=== PATIENT | male | born 1995 | race Two or more races ===

== ENCOUNTER 2025-04-15 14:09 | Emergency (ER) | payer MEDICAID, SELFPAY ==
[2025-04-15 14:10] VITALS: BMI 21.0
[2025-04-15 14:36] VITALS: BP 136/88; PULSE 117; RESP 18; TEMP 37.2; O2SAT 99
--- NOTE | 2025-04-15 14:40 | XR_ITS ---
Examination: Tibia-Fibula, right , 2 views Technique: Tibia-fibula AP lateral 2 views Date and time of exam: April 15, 2025 1557 hours INDICATIONS: Redness swelling and pain lower leg beginning 4 days ago FINDINGS: No fracture or dislocation. No foreign body No cortical bone destruction IMPRESSION: Negative for foreign body
--- NOTE | 2025-04-15 14:40 | XR_ITS ---
Examination: Knee, right , 3 views Technique: Knee AP, lateral, oblique 3 views Date and time of exam: April 15, 2025 1557 hours INDICATIONS: Redness swelling and pain involving the knee 4 days FINDINGS: No fracture or dislocation. No cortical bone destruction Prepatellar and prepatellar tendon soft tissue prominence Small knee effusion IMPRESSION: Consider ultrasound soft tissue knee follow-up to exclude prepatellar abscess
--- NOTE | 2025-04-15 14:40 | PD.EDRME ---
Rapid Medical Screening Exam RME Arrival date/time: 04/15/25 14:09 29-year-old male presents emergency department today for complaint of right leg infection Chief Complaint: Skin/Abscess/Foreign Body Vital signs: Vital Signs Temperature 99 F 04/15/25 14:36 Pulse Rate 117 H 04/15/25 14:36 Respiratory Rate 18 04/15/25 14:36 Blood Pressure 136/88 H 04/15/25 14:36 Pulse Oximetry (%) 99 04/15/25 14:36 Oxygen Delivery Method Room Air 04/15/25 14:36
[2025-04-15 15:10] LABS: Lactate (Lactic Acid) 1.7 mMol/L (0.4-2.0)
[2025-04-15 15:13] LABS: Basophils # (Auto) 0.1 Thou/mm3 (0.0-0.2); Basophils % (Auto) 1 % (0-2.5); Eosinophils # (Auto) 0.2 Thou/mm3 (0.0-0.5); Eosinophils % (Auto) 3 % (0-10); Hematocrit 33.3 % (41.0-53.0); Hemoglobin 11.7 g/dL (13.5-16.0); Immature Granulocytes % (Auto) 1 % (0-0); Immature Granulocytes Auto 0.04 Thou/mm3 (0.00-0.00); Lymphocytes # (Auto) 1.7 Thou/mm3 (1.0-4.8); Lymphocytes % (Auto) 23 % (10-50); Mean Corpuscular HGB Conc 35.1 g/dl (31.0-37.0); Mean Corpuscular Hemoglobin 29.8 pg (25.0-35.0); Mean Corpuscular Volume 85 fL (80-100); Monocytes # (Auto) 0.7 Thou/mm3 (0.0-0.8); Monocytes % (Auto) 9 % (0-12); Neutrophils # (Auto) 4.8 Thou/mm3 (1.8-7.7); Neutrophils % (Auto) 65 % (37-80); Nucleated Red Blood Cell % 0 /100 WBC (0); Platelet Count 331 Thou/mm3 (140-440); RDW Standard Deviation 37.1 fL (35.1-43.9); Red Blood Count 3.92 Miln/mm3 (4.50-5.90); White Blood Count 7.4 Thou/mm3 (3.8-10.6)
[2025-04-15 15:30] LABS: Alanine Aminotransferase 15 U/L (10-49); Alkaline Phosphatase 88 U/L (46-116); Anion Gap 13 (7-16); Aspartate Amino Transferase 23 U/L (0-34); BUN/Creatinine Ratio 14 Ratio (12-20); Blood Urea Nitrogen 11 mg/dL (9-23); Calcium 8.4 mg/dL (8.3-10.6); Carbon Dioxide 30.2 mMol/L (20.0-31.0); Chloride 103 mMol/L (98-107); Creatinine (Component) 0.8 mg/dL (0.6-1.3); Estimated Creatinine Clearance 101.4 mL/min (>60); Glucose 99 mg/dL (74-106); Osmolality,Calculated 289 (275-295); Potassium 4.1 mMol/L (3.4-5.1); Sodium 146 mMol/L (136-145); eGFR > 60 See Note
[2025-04-15 15:31] LABS: Albumin/Globulin Ratio 1.6 (1.2-2.2); Bilirubin,Total 0.3 mg/dL (0.3-1.2); C-Reactive Protein 4.2 mg/dL (0.0-0.9); Calcium (Corrected) 8.4 mg/dL (8.5-10.1); Globulin 2.5 gm/dL (2.3-3.5); Total Protein 6.5 gm/dL (5.7-8.2)
[2025-04-15 15:35] LABS: Prothrombin Time 10.6 Seconds (9.0-12.2)
[2025-04-15 15:38] LABS: Procalcitonin 0.07 ng/ml (0.0-0.49)
[2025-04-15 15:52] LABS: Sed Rate (ESR) 48 mm/hr (0-15)
[2025-04-15 16:42] LABS: Amphetamine/Methamp Scrn,U Positive (Negative); Barbiturate Screen,Urine Negative (Negative); Benzodiazepines Screen,Urine Negative (Negative); Benzoylecgonine Screen, Ur Positive (Negative); Fentanyl Screen,Urine Negative (Negative); Opiate Screen,Urine Negative (Negative); THC Screen,Urine Negative (Negative)
[2025-04-15 18:09] VITALS: BP 138/101; PULSE 111; RESP 18; TEMP 36.9; O2SAT 99
--- NOTE | 2025-04-15 18:14 | EDNOTE_ITS ---
ED Skin Abcess FB-RME/HPI General Chief complaint: Skin/Abscess/Foreign Body Stated complaint: POSSIBLE INSECT BITE TO KNEE WITH REDNESS Time Seen by Provider: 04/15/25 18:11 Arrival date/time: 04/15/25 14:09 RME / HPI RME / HPI narrative: 04/15/25 14:09 29-year-old male presents emergency department today for complaint of right leg infection Dr. Suárez?s Main ED Evaluation: 29 y/o male presents to ED c/o right lower leg pain, redness, and swelling x 1 week. Symptoms began with a small bump that he attributed to using cheap razors from the [employer] store. Patient has expressed pus from area. Patient denies any fever, chills, N/V or any other associated symptoms. No other concerns or complaints expressed at this time. Related Data Previous Rx's ?Medication ?Instructions ?Recorded diphenhydramine HCl 25 mg capsule 25 mg PO Q6H PRN run ny nose #30 06/01/18 (Benadryl) caps prednisone 20 mg tablet 40 mg (2 x 20 mg) PO QAM #9 tabs 06/01/18 acetaminophen 500 mg tablet 1,000 mg (2 x 500 mg) PO Q 6H PRN 04/15/25 fever or pain #30 tabs doxycycline monohydrate 100 mg 100 mg PO BID Celluliti s 10 days 04/15/25 capsule #20 caps ibuprofen 600 mg tablet 600 mg PO Q6H PRN fever or p ain 04/15/25 #30 tabs Allergies Allergy/AdvReac Type Severity Reaction Status Date / Time No Known Allergies Allergy Verified 04/15/25 14:12 Review of Systems Review of Systems Systems Reviewed: All systems reviewed, normal except as documented ED Exam Narrative Physical exam: GENERAL APPEARANCE: alert and oriented x 4, well-developed, well-nourished, no acute distress VITALS: All vitals were reviewed and the pulse ox is 100% on room air, which is normal according to my interpretation. HEENT: Normocephalic, atraumatic; pupils equal, round, reactive to light; EOMI; mucous membranes pink, moist; oropharynx clear NECK: Supple LUNGS: CTABL; no wheezes, no rales, no rhonchi HEART: Regular rate, regular rhythm; normal S1, S2; no murmurs ABDOMEN: non distended; normal BS; soft, no tenderness, no guarding, no rebound; no masses, no organomegaly, no hernia BACK: no CVA tenderness EXTREMITIES: atraumatic NEUROLOGIC: awake; alert and oriented x4; cranial nerves II-XII grossly intact; no focal sensory or motor deficits PSYCHIATRIC: appropriate mood and affect SKIN: 2 cm circular open wound overlying right tibial tuberosity. Pitting 2+ edema, erythema, hot to touch from the right foot just inferior to the knee. Course Course Course Narrative: 18:37 I expressed a small amount of pus from the wound This patient absolutely refused to be admitted to the hospital. He stated that his mom is graduating from college and that he has to go to the graduation [employer]. He states that he will come back if his leg does not get better. I tried to convince him to stay for admission but he absolutely refused. I went ahead and gave him IV antibiotics, called and antibiotics at the pharmacy and encouraged him to come back as soon as he is ready to be admitted. Quality Measures none Orders Category Date Time Status IV [Insert IV] NOW Care 04/15/25 18:28 Completed XR knee RT 3V Stat Exams 04/15/25 14:40 Completed XR tibia fibula RT 2V Stat Exams 04/15/25 14:40 Completed Blood Culture (Lab) Stat Lab 04/15/25 14:40 Results CBC Stat Lab 04/15/25 14:48 Completed CMP [Comprehensive Metabolic Panel] Stat Lab 04/15/25 14:48 Completed CRP [C-Reactive Protein] Stat Lab 04/15/25 14:48 Completed Drug Screen,Urine Stat Lab 04/15/25 16:20 Completed ESR [Sed Rate (ESR)] Stat Lab 04/15/25 14:48 Completed Lactic Acid [Lactate (Lactic Acid)] Stat Lab 04/15/25 14:48 Completed PT [Prothrombin Time with INR] Stat Lab 04/15/25 14:48 Completed Procalcitonin Stat Lab 04/15/25 14:48 Completed Acetaminophen Tab [Tylenol ES Tab] Med 04/15/25 18:28 Discontinued 1,000 mg PO X1 ONE Doxycycline Inj [Vibramycin Inj] 100 mg Med 04/15/25 18:28 Discontinued Sodium Chloride 0.9% (Pop) [NS 0.9% mini bag] 100 ml IV X1 Ibuprofen Tab [Motrin Tab] Med 04/15/25 18:28 Discontinued 600 mg PO X1 ONE Piper/Tazo 3.375 gm Premix [Zosyn] Med 04/15/25 18:29 Discontinued 3.375 gm in 50 ml IV X1 Sodium Chloride 0.9% 1000 ml [Ns] 1,000 ml Med 04/15/25 18:28 Discontinued IV 999 mls/hr Vital Signs Vital signs: Vital Signs Temperature 99 F 04/15/25 14:36 Pulse Rate 117 H 04/15/25 14:36 Respiratory Rate 18 04/15/25 14:36 Blood Pressure 136/88 H 04/15/25 14:36 Pulse Oximetry (%) 99 04/15/25 14:36 Oxygen Delivery Method Room Air 04/15/25 14:36 Skin / Abscess / Foreign Body MDM Narrative MDM Narrative:: Scribe Attestation: Nkechi Echols, am scribing for and in the presence of Dr. Suárez. Provider Notation: Although this document has been carefully reviewed, there may still be some phonetic and other typographical errors.? These errors are purely grammatical due to imperfections in the software program and should not be construed in any way to? compromise the substance of the patient's medical care during this visit. Patient data External records reviewed:: [facility] previous records (No prior ED records available for review.) Clinical information provided by:: patient Social determinants that could affect healthcare access:: substance use (Methamphetamine, Cocaine) Patient has the following chronic illnesses:: None reported How is presenting disease/condition affected by chronic disease/condition?: no chronic disease Evaluation data The following diagnostics were reviewed and interpreted by me:: lab results and radiology exam(s) Lab and/or radiology exams considered but not ordered:: None Interpretation Summary: LABS Hematology: RBC 3.92, Hgb 11.7, Hct 33.3%, Immature Gran # 0.04, Immature Gran % 1%, ESR 48. Chemistry: Sodium 146, Corrected Calcium 8.4, C-Reactive Prot, Quant 4.2. Toxicology: U Amphetamine/Meth Scrn Positive, U Cocaine Metab Screen Positive. RADIOLOGY Tibia/Fibula X-Ray Patient: LILIAM AARON Plasticell. Record#: [id number] Birthdate: 1995 Age/Sex: 29 / M Location: [facility] Attending Dr: Ordering Physician: Vincent MUKHERJEE)Kiel NP Date of Service: 04/15/25 Procedure(s): XR tibia fibula RT 2V Accession Number(s): [id number] cc: Vincent MUKHERJEE),Kiel HOLLY; Kip Hoffman MD~ Examination: Tibia-Fibula, right , 2 views Technique: Tibia-fibula AP lateral 2 views Date and time of exam: April 15, 2025 1557 hours INDICATIONS: Redness swelling and pain lower leg beginning 4 days ago FINDINGS: No fracture or dislocation. No foreign body No cortical bone destruction IMPRESSION: Negative for foreign body Dictated By: Kip Hoffman MD Signed By: <Electronically signed by Kip Hoffman MD in OV> 04/15/25 1508 Right Knee X-Ray Patient: LILIAM AARON Plasticell. Record#: [id number] Birthdate: 1995 Age/Sex: 29 / M Location: [facility] Attending Dr: Ordering Physician: Vincent MUKHERJEE)Kiel NP Date of Service: 04/15/25 Procedure(s): XR knee RT 3V Accession Number(s): [id number] cc: Vincent MUKHERJEE),Kiel HOLLY; Kip Hoffman MD~ Examination: Knee, right , 3 views Technique: Knee AP, lateral, oblique 3 views Date and time of exam: April 15, 2025 1557 hours INDICATIONS: Redness swelling and pain involving the knee 4 days FINDINGS: No fracture or dislocation. No cortical bone destruction Prepatellar and prepatellar tendon soft tissue prominence Small knee effusion IMPRESSION: Consider ultrasound soft tissue knee follow-up to exclude prepatellar abscess Dictated By: iKp Hoffman MD Signed By: <Electronically signed by Kip Hoffman MD in OV> 04/15/25 1509 Medications / Prescriptions Medications or Prescriptions considered but not ordered:: None Medication administrations:: Medication Administration History Discontinued Medications Acetaminophen (Acetaminophen 500 Mg Tablet) 1,000 mg PO X1 ONE Stop: 04/15/25 18:29 Last Admin: 04/15/25 19:29 Dose: 1,000 mg Documented By: CG Piperacillin/Tazobactam/Dextrose (Zosyn) 3.375 gm in 50 mls @ 100 mls/hr IV X1 ONE Stop: 04/15/25 18:58 Last Infusion: 04/15/25 20:13 Dose: Infused Documented By: Admin: 04/15/25 19:33 Dose: 100 mls/hr Documented By: CG Doxycycline Hyclate 100 mg/ (Sodium Chloride) 100 mls @ 100 mls/hr IV X1 ONE Stop: 04/15/25 19:27 Last Infusion: 04/15/25 21:11 Dose: Infused Documented By: Admin: 04/15/25 20:11 Dose: 100 mls/hr Documented By: CG Sodium Chloride (Ns) 1,000 mls @ 999 mls/hr IV .Q1H1M ONE Stop: 04/15/25 19:28 Last Infusion: 04/15/25 20:40 Dose: Infused Documented By: Admin: 04/15/25 19:39 Dose: 999 mls/hr Documented By: CG Ibuprofen (Ibuprofen Tab 600 Mg Tablet) 600 mg PO X1 ONE Stop: 04/15/25 18:29 Last Admin: 04/15/25 19:32 Dose: 600 mg Documented By: CG See above if any Consultations Consultation(s) initiated? (list below): No Diagnosis Skin/Abscess Differential Diagnosis: abscess of skin or subcutaneous tissue, dermatophytosis, cellulitis, insect bites and contact dermatitis Most likely diagnosis given after review of the tests above:: Refer to clinical impression below Admission Indicated Admission indicated?: not indicated Explain why admission is indicated or not indicated:: Patient has no emergent abnormalities in their studies and can be managed on an outpatient basis. Admission Request Was there a request for admission?: No Disposition Plan Disposition Plan: Discharge Discharge Attestation Discharge Attestation: The patient and all family members were given an opportunity to ask questions and understood the discharge instructions. Discharge instructions specifically effects, indications for sooner follow up or return to the emergency department, and the expected course of current diagnosis. Patient condition: Stable Discharge Plan Plan Patient Disposition: HOME (Self Care) Discharge Disposition comment: Stable for discharge Patient condition on transfer: Stable Prescriptions/Referrals Prescriptions/Med Rec: New doxycycline monohydrate 100 mg capsule 100 mg PO BID 10 Days Qty: 20 0RF acetaminophen 500 mg tablet 1,000 mg PO Q6H PRN (Reason: fever or pain) Qty: 30 0RF ibuprofen 600 mg tablet 600 mg PO Q6H PRN (Reason: fever or pain) Qty: 30 0RF Rx Instructions: Patient is no longer on prednisone No Action prednisone 20 mg tablet 40 mg PO QAM Qty: 9 0RF Rx Instructions: Take 40mg (2 tabs) PO QAM x 3 days, then 20mg (1 tab) PO QAM x 3 days diphenhydramine HCl [Benadryl] 25 mg capsule 25 mg PO Q6H PRN (Reason: runny nose) Qty: 30 0RF Rx Instructions: 1-2 tab(s) PO Q6-8 hours prn Referrals: Jw Brown MD [Primary Care Provider] - In 1 week Problem List Clinical Impression: Cellulitis Patient/Caregiver Discharge Instructions Discharge Activity: activity as tolerated Education Materials: ED Cellulitis Additional Instructions: Please return to the emergency department if you have any worsening or any further medical problems and we will help you. Otherwise you should follow-up with your primary care doctor or in the family [facility] care clinic within the next several days There are several medications waiting for you at your pharmacy. One of them is called doxycycline. This is your antibiotic. It is very important that you take this medicine twice per day for the full 10 days even if you are feeling better before that. The other 2 medications are acetaminophen and ibuprofen, otherwise known as Tylenol and Motrin. You can take these up to every 6 hours for pain and/or fevers. You should keep the wound covered. Print Language: Romanian Stand Alone Forms: Kellee Award Info., Patient Portal Info Letter
--- NOTE | 2025-04-15 19:15 | PC.NURSE ---
It Support Consultant assumes care of patient at this time, pt is A/O x 3 with c/o pain to R lower leg, pt rates pain 3/10 at this time, no acute distress noted or reported to science writer
[2025-04-15] MEDS: ACETAMINOPHEN 500 MG TABLET 1000 MG PO (19:29)
[2025-04-15 19:30] VITALS: BP 141/93; PULSE 109; RESP 20; TEMP 36.9; O2SAT 100
[2025-04-15 19:32] VITALS: TEMP 36.9
[2025-04-15] MEDS: IBUPROFEN TAB 600 MG TABLET PO (19:32)
[2025-04-15] MEDS: PIPER/TAZO 3.375 GM PREMIX 3.375 GM/50 ML BAG IV (19:33)
[2025-04-15] MEDS: SODIUM CHLORIDE 0.9% 1000 ML 1,000 ML 999 ML IV (19:39)
[2025-04-15] MEDS: DOXYCYCLINE INJ 100 MG in SODIUM CHLORIDE 0.9% (POP) 100 ML IV (20:11)
[2025-04-15 22:22] VITALS: BP 132/78; PULSE 84; RESP 20; TEMP 36.7; O2SAT 100
== END 2025-04-16 00:09 | disposition home or self-care (01) ==
PROVIDERS: Nurse Practitioner Primary Care; Emergency Provider Emergency Medicine; PCP Family Medicine
DX: L03.115 Cellulitis of right lower limb (principal); M25.561 Pain in right knee
CPT/HCPCS: 36415; 73562; 73590; 80053; 80307; 83605; 84145; 85025; 85610; 85652; 86140; 87040; 96365; 96367; 99284; J2543; J3490; J7030; A9270